=== PATIENT | male | born 1985 | race American Indian/Alaskan Native ===

== ENCOUNTER 2016-08-18 11:48 | Emergency (ER) | payer OTHER ==
[2016-08-18] MEDS ORDERED: MOTRIN PO ONE (13:42)
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
[2016-08-18 14:46] VITALS: BP 121/78
== END 2016-08-18 15:33 | disposition home or self-care (01) ==
LOC: ED 11:48
DX: S16.1XXA Strain of muscle, fascia and tendon at neck level, initial encounter (principal); M50.30 Other cervical disc degeneration, unspecified cervical region; M62.838 Other muscle spasm; M54.12 Radiculopathy, cervical region; Z88.0 Allergy status to penicillin; V43.52XA Car driver injured in collision with other type car in traffic accident, initial encounter; Y92.488 Other paved roadways as the place of occurrence of the external cause; Y93.89 Activity, other specified; Y99.8 Other external cause status
CPT/HCPCS: 72125